=== PATIENT | female | born 1990 | race Caucasian/White ===

== ENCOUNTER 2016-11-11 09:57 | Emergency (ER) | payer BC, MEDICAID, OTHER ==
[2016-11-11] MEDS ORDERED: ONDANSETRON HCL/PF 2 MG/ML VIAL IV ONE (10:46)
[2016-11-11] MEDS ORDERED: NORMAL SALINE 1,000 ML IV ONE (10:46)
[2016-11-11] MEDS ORDERED: ONDANSETRON HCL/PF 2 MG/ML VIAL ONE (10:50)
--- NOTE | 2016-11-11 10:55 | ERNOTE ---
Medical Problem HPI - Narrative Date of Service: 11/11/16 - General Chief Complaint: General Assessment Time Seen by Provider: 11/11/16 10:31 Source: patient, RN notes reviewed Exam Limitations: no limitations - Immun/Allergies/Home Medications Immunizations: IMMUNIZATION HX Immunizations Up to Date Yes Allergies/Adverse Reactions: Allergies No Known Allergies Allergy (Verified 11/11/16 10:08) Home Medications: HOME MEDICATIONS Divalproex Sodium [Depakote] 250 mg PO DAILY 11/11/16 [Last Taken Unknown] clonazePAM [Klonopin] 0.5 mg PO 11/11/16 [Last Taken Unknown] - History of Present History Narrative: 25 y/o female to ED for multiple complaints. Has her 2 y/o daughter with her who is well. She reports vaginal bleeding for 4 days. This is apparently her menses but she reports that it is heavier than usual. She had diarrhea yesterday. Initially her stools were hard to pass, and then when she began having diarrhea, there was bright red blood in her stools. She also had a nose bleed. She has a cough and reports blood in her sputum. She also vomited once this morning and reports having streaks of blood and mucus in her emesis. She has not taken anything for her symptoms. She denies any sick contacts. She is a single, [id number] mother. Review of Systems - Review of Systems Constitutional: Present: fatigue, malaise. Absent: fever, chills EYE: Present: no symptoms reported ENT: Absent: ear pain, nose congestion, sore throat Respiratory: Present: cough. Absent: shortness of breath Cardiology: Present: no symptoms reported Gastrointestinal/Abdominal: Present: nausea, vomiting, diarrhea, eating less, drinking less. Absent: abdominal pain Genitourinary: Absent: frequency, dysuria Musculoskeletal: Present: muscle pain, joint pain Skin: Present: no symptoms reported Neurological: Present: headache, dizziness/light-headedness, numbness, tingling Endocrine: Present: no symptoms reported Hematologic/Lymphatic: Present: no symptoms reported Psych: Present: anxiety, depressed - Patient's Past Medical History Patient History - Medical: Anxiety, Chronic Pain, Depression, Other - Raynaud's Patient History - Cardiac/Respiratory: Asthma Patient History - Cancer: No Hx of Cancer Patient History - Surgical Procedures: , Other - Hernia LMP (females 10-50): now LMP (Calendar): 11/07/16 - Social History Living Situations: home Smoking Status: Never smoker Have you smoked in the past 12 months: No Alcohol Use: none Drug Use: none Physical Exam - Physical Exam General Appearance: Present: alert, thin, other - appears uncomfortable Ears, Nose, Throat: Present: normal ENT inspection, hearing grossly normal, normal pharynx, other - hoarse voice. Absent: abnormal TM (R), abnormal TM (L) , nasal congestion, sinus pain/drainage Neck: Present: normal inspection, nontender, supple Respiratory: Present: no respiratory distress, normal breath sounds, no accessory muscle use, lungs clear Cardiovascular/Chest: Present: regular rate, rhythm, no murmur, normal peripheral pulses Gastrointestinal/Abdominal: Present: normal bowel sounds, nondistended, soft, no organomegaly, tenderness - mild just below umbillicus Back Exam: Present: normal inspection, no CVA tenderness Extremity Exam: Present: normal inspection, no edema, normal range of motion Neurological Exam: Present: alert, oriented, no motor/sensory deficits, other - flat affect, depressed appearing Skin Exam: Present: normal color, warm/dry ED Progress - Results and Orders Patient's Lab Results:: I have reviewed the patient's lab results. - Vital Signs Patient's Vital Signs:: I have reviewed the patient's vital signs. Vital Signs: Vital Signs 11/11/16 10:04 Temperature 35.4 C L Pulse Rate 82 Respiratory 14 Rate Blood Pressure 151/74 O2 Sat by Pulse 100 Oximetry - Progress/Reassessment Chief Complaint: General Assessment Progress:: Improved Progress Note-Subjective: Feeling better after IVF and Zofran. No vomiting or diarrhea while in dept. Labwork unremarkable. Departure - Departure Clinical Impression: Viral gastroenteritis Disposition: Home self-care Condition: Good Instructions: Viral Gastroenteritis, Adult, [id number] Additional Instructions: Rest Fluids and advance diet as discussed Referrals: Cuong Gonzalez MD [Primary Care Provider] -
[2016-11-11 10:58] LABS: Hematocrit 40.8 % (37.0-47.0); Hemoglobin 13.4 gm/dL (12.5-16.0); Mean Cell Volume 92.7 fl (78-100); Mean Corpuscular Hemoglobin 30.5 pg (27-31); Mean Corpuscular Hgb Conc 32.8 g/dl (32-36); Mean Platelet Volume 11.3 fl (6.0-9.5); Neutrophil # 4.6 K/mm3 (1.3-6.0); Neutrophil % 58.8 % (42-75.0); Platelet Count 209 K/mm3 (150-450); Red Cell Distribution Width 13.4 % (11.5-14.0); White Blood Count 7.8 K/mm3 (4.0-10.5)
[2016-11-11 11:14] LABS: Albumin * 3.2 gm/dl (3.4-5.0); Anion Gap 7.8 mmol/L (6.8-13.8); BUN/Creatinine Ratio 9.3 (9.0-21.6); Bilirubin, Total 0.5 mg/dL (0.0-1.1); Ca. Corrected For Albumin 9.1 mg/dL (8.4-10.2); Calcium * 8.8 mg/dL (7.9-10.9); Carbon Dioxide 30.8 mmol/L (24-32.6); Potassium 3.6 mmol/L (3.4-4.6); Total Protein 7.2 gm/dL (6.2-8.2)
[2016-11-11 12:35] VITALS: BP 111/70
== END 2016-11-11 12:44 | disposition home or self-care (01) ==
LOC: ER 09:57
DX: A08.4 Viral intestinal infection, unspecified (principal)

== ENCOUNTER 2016-12-09 10:14 | Emergency (ER) | payer OTHER ==
[2016-12-09 10:29] VITALS: BP 101/83
[2016-12-09] MEDS ORDERED: ONDANSETRON 4 MG TAB.RAPDIS PO ONE (10:32)
[2016-12-09] MEDS ORDERED: ONDANSETRON 4 MG TAB.RAPDIS ONE (10:33)
--- NOTE | 2016-12-09 11:19 | ERNOTE ---
Abdominal HPI - Narrative Date of Service: 12/09/16 - General Chief Complaint: Nausea/Vomiting Time Seen by Provider: 12/09/16 11:16 Source: patient, RN notes reviewed Exam Limitations: no limitations - Immun/Allergies/Home Medications Immunizatons: IMMUNIZATION HX Immunizations Up to Date Yes History of Influenza Vaccine No Hx Pneumococcal Vaccination No Allergies/Adverse Reactions: Allergies No Known Allergies Allergy (Verified 12/09/16 10:30) Home Medications: HOME MEDICATIONS Divalproex Sodium [Depakote] 250 mg PO DAILY 11/11/16 [Last Taken Unknown] clonazePAM [Klonopin] 0.5 mg PO BID 11/11/16 [Last Taken Unknown] Norgestimate-Ethinyl Estradiol [Sprintec] 1 each PO DAILY 12/09/16 [Last Taken Unknown] - History of Present Illness Narrative: 25 y/o female ambulatory to the ED for vomiting that began at 0300. She denies diarrhea, but reports she has not had a bowel movement for a couple of days and is constipated. She feels as though she has to go but cannot. She reports abdominal cramping and low back pain, but is also having her menses. She has not taken anything for her symptoms. Her daughter and significant other have had similar symptoms. She was given Zofran during triage. She has been drinking water without vomiting , but is still complaining of nausea. Date (Duration): 12/09/16 Time (Timing): 03:00 Review of Systems - Review of Systems Constitutional: Present: fatigue, malaise. Absent: fever, chills EYE: Present: no symptoms reported ENT: Present: no symptoms reported Respiratory: Absent: shortness of breath, cough Cardiology: Absent: chest pain, syncope Gastrointestinal/Abdominal: Present: nausea, vomiting, constipation, abdominal pain, eating less, drinking less Genitourinary: Absent: frequency, dysuria Musculoskeletal: Present: back pain. Absent: neck pain Skin: Absent: rash, lesions Neurological: Present: dizziness/light-headedness. Absent: headache Endocrine: Present: no symptoms reported Hematologic/Lymphatic: Present: no symptoms reported Psych: Present: no symptoms reported - Patient's Past Medical History Patient History - Medical: Anxiety, Chronic Pain, Depression, Migraines, Other Patient History - Cardiac/Respiratory: No pertinent hx Patient History - Cancer: No Hx of Cancer Patient History - Surgical Procedures: , Other Patient History - Other: None LMP (females 10-50): now - Social History Living Situations: home Abuse History: No History of abuse Psych History: Hx of Anxiety, Hx of Depression Smoking Status: Never smoker Alcohol Use: none Drug Use: none - Immunizations Immunizations Up to Date: Yes Hx Pneumococcal Vaccination: No History of Influenza Vaccine: No Physical Exam - Physical Exam General Appearance: Present: wd/wn, alert, no apparent distress, thin Eye Exam: Normal inspection: bilateral Respiratory: Present: no respiratory distress, normal breath sounds, no accessory muscle use, lungs clear Cardiovascular/Chest: Present: regular rate, rhythm, no murmur, normal peripheral pulses Gastrointestinal/Abdominal: Present: normal bowel sounds, nondistended, soft, tenderness - mild diffuse Back Exam: Present: normal inspection, no CVA tenderness Neurological Exam: Present: alert, oriented, normal mood/affect, no motor/ sensory deficits Skin Exam: Present: normal color, warm/dry ED Progress - Vital Signs Patient's Vital Signs:: I have reviewed the patient's vital signs. Vital Signs: Vital Signs 12/09/16 10:24 Temperature 36.6 C Pulse Rate 96 Respiratory 16 Rate Blood Pressure 101/83 O2 Sat by Pulse 98 Oximetry - Progress/Reassessment Chief Complaint: Nausea/Vomiting Progress:: Improved Progress Note-Subjective: Offered Phenergan IM for ongoing nausea - patient does not want an IM injection. Discussed constipation - offered suppository but does not want to do this either. Reassured that symptoms are likely viral GI illness as her other household members have been ill as well, and that her symptoms are likely exacerbated by her menses and constipation. Discussed symptomatic treatment at home and indications for needing to return. Patient agreeable to plan. Departure - Departure Clinical Impression: Viral gastroenteritis Disposition: Home self-care Condition: Stable Instructions: Viral Gastroenteritis, Adult, [id number] Referrals: Cuong Gonzalez MD [Primary Care Provider] -
--- OUTSIDE RECORDS SUMMARY | 2016-12-09 11:32 | XMS REPORT | Continuity of Care Document ---
:1990 Author Organization [facility] ([facility]) Address [address] [place] [address] Phone [phone] Care Team Providers Name Role Phone Cuong Uribe Primary Care Provider [phone] Source Comments This disclosure is being made pursuant to the Care Everywhere program, applicable federal and state laws, and may not contain all informaitonavailable regarding this patient.[facility] ([facility]) Active Allergies and Adverse Reactions No Known Allergies Current Medications Prescription Sig. Disp. Refills Start Date End Date Status Pump Set [facility] Breast Pump. 1 1 Each 0 09/21/2014 Active Device Daily Indications: oxyCODONE-acetaminop Take 1 Tab by mouth 20 Tab 0 09/27/2014 Active hen 5-325 mg per every 4 hours as tablet needed. Do Not exceed 4000 mg of acetaminophen per 24 hours. Indications: PAIN LORAZEPAM 0.5 mg 04/18/2015 Active tablet TRAMADOL 50 mg 0 04/10/2015 Active tablet HYDROcodone-acetamin Take 1 tablet by 20 tablet 0 06/14/2015 Active ophen 5-325 mg per mouth every 4 hours tablet as needed for Pain DO NOT EXCEED 3,000 MG ACETAMINOPHEN PER DAY FROM ALL SOURCES ibuprofen 800 mg Take 1 tablet (800 20 tablet 0 06/14/2015 Active tablet mg total) by mouth every 6 hours as needed for Pain DO NOT EXCEED 3,200 MG IBUPROFEN PER DAY FROM ALL SOURCES chlorhexidine 0.12 % Rinse with 10 ML for 473 mL 0 06/14/2015 Active oral rinse 30 seconds twice daily for 10 days. Swish and spit out excess. Nothing by mouth for 30 minutes. Active Problems Problem Noted Date S/P primary low transverse section 09/20/2014 Overview: For labor and breech presentation 09/18/2014 labor 09/18/2014 Cyanosis 03/07/2008 Social History Tobacco Use Types Packs/Day Years Used Date Never Smoker Smokeless Tobacco: Never Used Alcohol Use Drinks/Week oz/Week Comments Yes Occassional social Last Filed Vital Signs Vital Sign Reading Time Taken Blood Pressure 112/75 06/14/2015 2:11 PM CDT Pulse 98 05/17/2015 3:23 PM CDT Temperature 35.3 C (95.5 F) 06/14/2015 12:51 PM CDT Respiratory Rate 20 06/14/2015 12:51 PM CDT Height 1.702 m (5' 7") 06/14/2015 12:58 PM CDT Weight 53.6 kg (118 lb 2.7 oz) 06/14/2015 12:58 PM CDT Body Mass Index 18.5 06/14/2015 12:58 PM CDT Oxygen Saturation 100% 06/14/2015 2:11 PM CDT Plan of Care Health Maintenance Due Date Last Done Comments Hepatitis B Vaccine (1 of 3 - Primary Series) 1990 HPV Vaccine (1 of 3 - Female/Unknown 3 Dose Series) 12/21/2003 Tdap Vaccine 12/21/2003 Cervical Cancer Screening 2010 Lipid Disorder Screening 2010 MMR Vaccine 2010 Td Vaccine 2010 Varicella Vaccine (1 of 2 - Adult - No Evidence of 2010 Immunity) Influenza Vaccine: Seasonal (#1) 05/19/2016 Results from Last 3 Months Not on file
== END 2016-12-09 11:45 | disposition home or self-care (01) ==
LOC: ER 10:14
DX: A08.4 Viral intestinal infection, unspecified (principal); F41.9 Anxiety disorder, unspecified; G43.909 Migraine, unspecified, not intractable, without status migrainosus

== ENCOUNTER 2017-01-27 09:04 | Emergency (ER) | payer OTHER ==
[2017-01-27 09:17] VITALS: BP 110/70
--- OUTSIDE RECORDS SUMMARY | 2017-01-27 09:19 | XMS REPORT | Continuity of Care Document ---
:1990 Author Organization [facility] ([facility]) Address [address] [place] [address] Phone [phone] Care Team Providers Name Role Phone Cuong Uribe Primary Care Provider [phone] Source Comments This disclosure is being made pursuant to the Care Everywhere program, applicable federal and state laws, and may not contain all informaitonavailable regarding this patient.[facility] ([facility]) Active Allergies and Adverse Reactions No Known Allergies Current Medications Prescription Sig. Disp. Refills Start Date End Date Status Pump Set [facility] Breast Pump. 1 1 Each 0 09/21/2014 [...]
--- NOTE | 2017-01-27 09:21 | ERNOTE ---
Time Seen by Provider: 01/27/17 09:06 Stated Complaint: URI Presenting Symptoms:: cough, sore throat Source: patient Exam Limitations: no limitations Immunizations: IMMUNIZATION HX Immunizations Up to Date Yes History of Influenza Vaccine No Hx Pneumococcal Vaccination No Allergies/Adverse Reactions: Allergies No Known Allergies Allergy (Verified 01/27/17 09:21) Home Medications: HOME MEDICATIONS Divalproex Sodium [Depakote] 250 mg PO DAILY 11/11/16 [Last Taken Unknown] clonazePAM [Klonopin] 0.5 mg PO BID 11/11/16 [Last Taken Unknown] Norgestimate-Ethinyl Estradiol [Sprintec] 1 each PO DAILY 12/09/16 [Last Taken Unknown] Azithromycin [Zithromax] 250 mg PO DAILY #6 tablet 01/27/17 [Last Taken Unknown] - History of Present Ilness Narrative: Patient complains of a sore throat, she was exposed to strep by her young daughter. She says her voice is hoarse now which is somewhat new for her and plans a small cough as well. Onset of the symptoms was approximately 2 days ago she describes them as being mild in intensity. Timing: getting worse Severity: mild Associated Symptoms: Reports: cough, sore throat Review of Systems - Review of Systems Constitutional: Present: See HPI EYE: Present: no symptoms reported ENT: Present: sore throat Respiratory: Present: cough Cardiology: Present: no symptoms reported Gastrointestinal/Abdominal: Present: no symptoms reported Genitourinary: Present: no symptoms reported Musculoskeletal: Present: no symptoms reported Skin: Present: no symptoms reported Neurological: Present: no symptoms reported Endocrine: Present: no symptoms reported Hematologic/Lymphatic: Present: no symptoms reported Psych: Present: no symptoms reported - Patient's Past Medical History Patient History - Medical: Anxiety, Chronic Pain, Depression, Migraines, Other Patient History - Cardiac/Respiratory: No pertinent hx Patient History - Cancer: No Hx of Cancer Patient History - Surgical Procedures: , Other Patient History - Other: None LMP (Calendar): 11/07/16 - Social History Living Situations: home Abuse History: No History of abuse Psych History: Hx of Anxiety, Hx of Depression Smoking Status: Never smoker Alcohol Use: none Drug Use: none - Immunizations Immunizations Up to Date: Yes Hx Pneumococcal Vaccination: No History of Influenza Vaccine: No Physical Exam - Physical Exam General Appearance: Present: wd/wn, alert, mild distress Eye Exam: Normal inspection: bilateral, PERRL: bilateral Ears, Nose, Throat: Present: pharyngeal erythema Neck: Present: normal inspection, nontender Respiratory: Present: no respiratory distress, no accessory muscle use, chest nontender, other - fine coarse breath sounds Cardiovascular/Chest: Present: regular rate, rhythm, no murmur, normal peripheral pulses Gastrointestinal/Abdominal: Present: normal bowel sounds, nontender, nondistended, soft, no organomegaly Rectal Exam: Present: deferred Back Exam: Present: normal inspection, normal range of motion Extremity Exam: Present: normal inspection, non-tender, no edema, normal range of motion Neurological Exam: Present: alert, oriented, normal mood/affect Skin Exam: Present: normal color, warm/dry Lymphatic Exam: Present: no adenopathy ED Progress - Results and Orders Patient's Lab Results:: I have reviewed the patient's lab results. - Vital Signs Patient's Vital Signs:: I have reviewed the patient's vital signs. Vital Signs: Vital Signs 01/27/17 09:11 Temperature 36.7 C Pulse Rate 105 H Respiratory 14 Rate Blood Pressure 110/70 O2 Sat by Pulse 100 Oximetry - Progress/Reassessment Chief Complaint: Upper Respiratory Symptoms Departure - Departure Clinical Impression: Upper respiratory infection, acute Disposition: Home self-care Condition: Good Instructions: Upper Respiratory Infection, Adult, [id number] Referrals: Cuong Gonzalez MD [Primary Care Provider] - Prescriptions: Azithromycin [Zithromax] 250 mg PO DAILY #6 tablet
[2017-01-27] MEDS ORDERED: predniSONE 20 MG TABLET PO ONE (09:25)
[2017-01-27] MEDS ORDERED: predniSONE 20 MG TABLET ONE (09:26)
== END 2017-01-27 09:30 | disposition home or self-care (01) ==
LOC: ER 09:04
DX: J06.9 Acute upper respiratory infection, unspecified (principal)

== ENCOUNTER 2017-06-30 10:52 | Day surgery (SDC) | payer OTHER ==
[~2017-06-30 10:52] MED LIST: RINGER'S SOLUTION,LACTATED 1,000 ML IV PRN
[2017-06-30] MEDS ORDERED: RINGER'S SOLUTION,LACTATED 1,000 ML IV ONE (11:25)
[2017-06-30] MEDS ORDERED: BUPIVACAINE HCL/EPINEPHRINE 50 ML VIAL IJ ONE (11:45)
--- NOTE | 2017-06-30 12:15 | OR ---
Operative Report - Dictated Report Narrative: Date: 06/30/2017 Preop dx: Lipoma of lumbar spine Postop dx: same Procedure: Excision subcutaneous soft tissue tumor 2.5x3 cm lumbar spine Staff surgeon: Wu Fox MD Anesthesia: local/MAC Specimen: lipoma Description: Pt was placed in the left lateral decubitus position and the back was prepped and draped in a sterile fashion. A field block was performed around the tumor which is in the midline of the lumbar spinous region directly overlying a spinous process. A midline incision was carried out and dissection was taken down to a pseudocapsule. The tumor was delivered with blunt dissection and electrocautery. The specimen was sent for permanent anatomic pathology. Hemostasis appeared adequate. The incision was closed with interrupted subcuticular sutures of 4-0 Vicryl and sealed with dermabond. The patient tolerated the procedure well without apparent complications and was discharged from the operating room in stable condition.
[2017-06-30 13:11] VITALS: BP 94/59
== END 2017-06-30 10:53 | disposition home or self-care (01) ==
LOC: AMB 10:52
PROVIDERS: ATTEND Specialist
PROC: 0JB70ZX Excision of Back Subcutaneous Tissue and Fascia, Open Approach, Diagnostic (ICD-10-PCS; principal; 2017-06-30 11:45)
DX: D17.1 Benign lipomatous neoplasm of skin and subcutaneous tissue of trunk (principal); J45.20 Mild intermittent asthma, uncomplicated; D64.9 Anemia, unspecified; F31.89 Other bipolar disorder; Z68.1 Body mass index [BMI] 19.9 or less, adult

== ENCOUNTER 2017-07-23 08:48 | Emergency (ER) | payer OTHER ==
--- NOTE | 2017-07-23 09:41 | ERNOTE ---
Abdominal HPI - Narrative Date of Service: 07/23/17 - General Chief Complaint: Abdominal Pain Time Seen by Provider: 07/23/17 09:20 Source: patient Exam Limitations: other - Patient vague and not good recall. Hard to give exact timeline of symptoms. - Immun/Allergies/Home Medications Immunizatons: IMMUNIZATION HX Immunizations Up to Date Yes History of Influenza Vaccine No Hx Pneumococcal Vaccination No Allergies/Adverse Reactions: Allergies lactose Adverse Reaction (Mild, Verified 07/23/17 08:57) INTOLERANT, ABD PAIN tramadol Adverse Reaction (Mild, Verified 07/23/17 08:57) NAUSEA, ABD PAIN Home Medications: HOME MEDICATIONS Ibuprofen [Motrin] 800 mg PO BID PRN 06/19/17 [Last Taken Unknown] Norethindrone-Ethinyl Estrad [Ortho-Novum] 1 each PO DAILY 06/19/17 [Last Taken Unknown] Ibuprofen [Motrin] 800 mg PO TID #15 tablet 06/30/17 [Last Taken Unknown] - History of Present Illness Narrative: 26 yo WF with two months of pelvic pain. She describes it as crampy but more intense last night. Had period for 4 days then no bleeding for two days then started bleeding again two days ago. On oral control. No N&V, fever, chills, stools changes. Denies dysuria. Appetite poor but hungry. No discharge prior to bleeding. Timing: constant, getting worse Quality: moderate Modifying Factors - (Worsens): Present: movement Review of Systems - Review of Systems ENT: Present: no symptoms reported Respiratory: Present: no symptoms reported Gastrointestinal/Abdominal: Present: no symptoms reported Musculoskeletal: Present: no symptoms reported Skin: Present: no symptoms reported Neurological: Present: no symptoms reported - Patient's Past Medical History Patient History - Medical: Anemia, Anxiety, Chronic Pain, Depression, Migraines , Other Patient History - Cardiac/Respiratory: Asthma Patient History - Cancer: No Hx of Cancer Patient History - Surgical Procedures: , Other Patient History - Other: None LMP (Calendar): 11/07/16 - Family History Father Family History - Medical: Anemia Family History - Cardiac/Respiratory: Hypertension Family History - Cancer: No pertinent family hx Mother Family History - Medical: Anemia, Fibromyalgia, Hypothyroidism Family History - Cardiac/Respiratory: No pertinent hx Family History - Cancer: No pertinent family hx - Social History Living Situations: home Abuse History: No History of abuse Psych History: Hx of Anxiety, Hx of Depression Alcohol Use: rarely Drug Use: none - Immunizations Immunizations Up to Date: Yes Hx Pneumococcal Vaccination: No History of Influenza Vaccine: No Physical Exam - Physical Exam General Appearance: Present: wd/wn, alert, mild distress Head Exam: Present: normal inspection, no evidence of injury Eye Exam: PERRL: bilateral, EOMI: bilateral Ears, Nose, Throat: Present: normal ENT inspection Neck: Present: normal inspection, nontender Respiratory: Present: no respiratory distress, normal breath sounds Cardiovascular/Chest: Present: regular rate, rhythm, no murmur Gastrointestinal/Abdominal: Present: abnormal bowel sounds - Decreased diffusely , other - Tender diffusely lower Q's. More tender right lower at paramedian. No scar tenderness or defects. ED Progress - Date and Time Seen: Date and Time: 07/23/17 10:59 Resting comfortably on cart. Pain has decreased some. Discussed findings with patient. - Vital Signs Vital Signs: Vital Signs 07/23/17 08:52 Temperature 36.3 C L Pulse Rate 79 Respiratory 12 Rate Blood Pressure 115/73 O2 Sat by Pulse 100 Oximetry - Progress/Reassessment Chief Complaint: Abdominal Pain Plan - Plan Plan: Findings suggested old ruptured ovarian cyst by pelvic fluid. Possible PID but does not have associated symptoms. Recommended alternating ibuprofen and tylenol. Follow up with PCP. Departure Clinical Impression: Pelvic pain - Departure Disposition: Home self-care Condition: Good Instructions: Pelvic Pain, Female, [id number] Additional Instructions: Alternate ibuprofen 600 mg with tylenol 650 mg every 3 hours. Follow up with PCP Return to ED if condition worsens. Referrals: Cuong Gonzalez MD [Primary Care Provider] -
[2017-07-23 09:53] LABS: Hematocrit 43.9 % (37.0-47.0); Hemoglobin 14.6 gm/dL (12.5-16.0); Mean Cell Volume 92.4 fl (78-100); Mean Corpuscular Hemoglobin 30.7 pg (27-31); Mean Corpuscular Hgb Conc 33.3 g/dl (32-36); Mean Platelet Volume 10.7 fl (6.0-9.5); Neutrophil # 2.9 K/mm3 (1.3-6.0); Neutrophil % 42.6 % (42-75.0); Platelet Count 271 K/mm3 (150-450); Red Blood Count 4.75 M/mm3 (4.2-5.4); Red Cell Distribution Width 12.8 % (11.5-14.0); White Blood Count 6.9 K/mm3 (4.0-10.5)
[2017-07-23 10:00] LABS: Urine Bilirubin Negative (NEGATIVE); Urine Blood 25 /ul (NEGATIVE); Urine Ketone Negative (NEGATIVE); Urine Nitrite Negative (NEGATIVE); Urine Protein 15 mg/dL (NEGATIVE); Urine Urobilinogen Normal (NORMAL)
[2017-07-23 10:07] LABS: Urine Appearance Clear; Urine Bacteria TRACE; Urine Color Yellow; Urine RBC 0-5 /hpf (0-5); Urine WBC None Seen /hpf (0-5)
[2017-07-23 10:19] LABS: Albumin * 3.9 gm/dl (3.4-5.0); Anion Gap 13.1 mmol/L (6.8-13.8); BUN/Creatinine Ratio 9.8 (9.0-21.6); Bilirubin, Total 0.7 mg/dL (0.0-1.1); Ca. Corrected For Albumin 9.1 mg/dL (8.4-10.2); Calcium * 9.3 mg/dL (7.9-10.9); Carbon Dioxide 27.6 mmol/L (24-32.6); Potassium 3.7 mmol/L (3.4-4.6); Total Protein 8.4 gm/dL (6.2-8.2)
[2017-07-23 10:44] VITALS: BP 120/73
== END 2017-07-23 11:12 | disposition home or self-care (01) ==
LOC: ER 08:48
DX: R10.2 Pelvic and perineal pain (principal)